=== PATIENT | female | born 2000 | race Caucasian/White ===

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

== ENCOUNTER 2022-09-17 14:00 | Outpatient (RCR) | payer OTHER, SELFPAY ==
--- NOTE | 2022-07-14 10:16 | HP.PTEVAL_ITS ---
Patient's Visit Information MAI BAER is a 21 year old F referred to Physical Therapy by Dr. Fernando Zafar MD with a diagnosis of Scoliosis. Date of Evaluation: 07/14/22 Physical Therapist: Marilyn Vargas DPT - Visit Plan Frequency: 1x/Week Duration: 4 Weeks Plan: 1x a week for 4 weeks for progression of core strength/stabilization at college- pt to buy TENS unit and continue with heat/TENS at home. - Subjective Patient reports that she has scoliosis- she is in college and started having horrible pains- it was about 2 months- before Break- but she is better now. She went to the show dog trainer and she was doing heat and stretches- that helped but it was still hard to get it all in. She went to the MD on Tuesday- they took x-rays and it showed scoliosis. She has known she has had it- saw chiro before due to being a swimmer but wasn't sure it was helping. She is playing tennis at school. She is currently at school- [employer]- she is going back Tuesday she is on spring. Main season is in the fall- she is playing a little bit now but nothing crazy. She does not do a lot of conditioning during tennis season just playing a lot. Sophomore. Pain is located in the bottom right side of her back right above her hip. Describes it as achy pains. Right hand dominate. More painful with sitting- once she gets up and moves around she does better. Sleepin night horrible but put a pillow between her knees- stomach sleeper- has not been waking her for a few months. Worst: 4/10 in the last week- most of the time she is painfree. No N/T in the toes, no loss or change in bowel/bladder, no radiating pain. Does have a heating pad in her dorm room. 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 PMHx: none Meds: none - Objective Posture: FH, RS- can correct but does not maintain-. Observation: scoliotic curve of the thoracic spine with convex curve to the left. HR/TR: able without UE A. SLS: 15 sec does report increased discomfort with right. ROM: WFL in all planes of the lumbar and LE. Strength: Core: fair, Hip: Flexion: 4/5, Extn: 4+/5, Add: 4+/5, Abd: 4/5, IR/ER: 4/5, Knee: 5/5 Ankle: 5/5. Flex:HS: moderate, Gastroc: moderate. Palpation: tender along paraspinals on the right lumbar- increased tightness on the left paraspinals. Right SLS increased discomfort. curve sticks out to the left - Balance/Special Test Scores Oswestry Low Back Score: 5 - Goals Goal 1:: Patient will be I with HEP and progression Goal Time Frame: 4-6 Weeks Goal 2:: Patient will maintain proper posture t/o tx session to demo increased core s/s Goal Time Frame: 4-6 Weeks Goal 3:: Patient will report 80% improvement Goal Time Frame: 4-6 Weeks - Rehabilitation Potential Physical Therapy Diagnosis: Patient presents with hypomobility- she has decreased LE and core strength/stabilization, flex and muscular endurance leading to fair posture and increased pain with ADL's. Rehabilitation Potential: Good - Anticipated Interventions Patient/Client Instruction: Educate patient on: Benefits of Fitness Program Therapeutic Exercise to Include: Strength training, Endurance training, Balance training, Coordination, Agility training, Body mechanics, Postural training, Flexibilty training, Gait and locomotor training, Neuromotor development, Dynamic Lumbar Stabilization, Scapular Strength/Stabilization For the Purpose of:: To improve muscle performance and motor function TENS: Yes Cryotherapy (ice pack, ice massage): Yes Thermo therapy (hot pack): Yes Thank you for the opportunity to evaluate your patient. For Medicare and Medicare HMO plans, please review the plan of care and approve it. It will need to be FAXED BACK to us at [phone] for Medicare purposes. For Medicare only, by signing this I certify the plan of care. Please let me know if there are questions or concerns regarding this plan of care. Physician Signature: Date:
--- NOTE | 2022-11-18 17:12 | HP.PTDCSUM ---
Discharge Summary D/C summary: It has been my pleasure to treat MAI BAER referred by Dr. Fernando Zafar MD, with the diagnosis of Scoliosis for a total of 9 visit(s). Discharge Date: Please see the following information for a summary of their discharge status. Subjective Subjective: States she's feeling real good. Did great last session and feels she is ready for d/c after today. Pain Back: Pain Intensity (Out of 10): 0 Objective Objective/Function: Pt did great with progressions. No pain t/o and appropriately challenged. Session today followed directly with PT for probable d/c. Goals Goal 1:: Patient will be I with HEP and progression Goal 2:: Patient will maintain proper posture t/o tx session to demo increased core s/s Goal 3:: Patient will report 80% improvement Plan Plan: 08/04/22: Cont 1x a week until she returns from college. 1x/week for 4 weeks for progression of core strength/stabilization at college- pt to buy TENS unit and continue with heat/TENS at home. D/C Information d/c sentence: If there are questions or concerns regarding this patient's physical therapy, please feel free to call me at [phone]. Thank you for the referral of this patient. Sincerely, Marilyn Vargas, JUANT Balance/Gait/Functional tests Balance/Special Test Scores Oswestry Low Back Score: 5
== END 2022-09-17 19:00 | disposition home or self-care (01) ==
LOC: PT 14:00
PROVIDERS: PCP Family Medicine; Referring Provider Orthopaedic Surgery Pediatric Orthopaedic Surgery; Visit Provider Orthopaedic Surgery Pediatric Orthopaedic Surgery
DX: M41.125 Adolescent idiopathic scoliosis, thoracolumbar region (principal)
CPT/HCPCS: 97014; 97110; 97162; G0283

== ENCOUNTER → 2024-04-27 | Outpatient (CLI) | payer OTHER, SELFPAY ==
[2024-04-27 16:21] LABS: Follicle Stimulating Hormone 3.2 mIU/mL
[2024-04-29 06:37] LABS: PROLACTIN 12.6 ng/mL (4.8-33.4)
== END | disposition home or self-care (01) ==
LOC: BFHLAB 13:13
PROVIDERS: PCP Family Medicine; Referring Provider Family Medicine; Visit Provider Family Medicine
DX: N91.2 Amenorrhea, unspecified (principal)
CPT/HCPCS: 36415; 83001; 84146; 84443

== ENCOUNTER → 2024-06-13 | Outpatient (CLI) | payer OTHER, SELFPAY ==
[2024-06-17 07:06] LABS: Chlamydia By Nucleic Acid AMP Negative (Negative); Gonococcus By Nucleic Acid AMP Negative (Negative)
[2024-06-20 08:22] LABS: HPV Reflexed? NOT INDICATED
== END | disposition home or self-care (01) ==
PROVIDERS: PCP Family Medicine; Visit Provider Nurse Practitioner Family
DX: Z12.4 Encounter for screening for malignant neoplasm of cervix (principal); Z11.3 Encounter for screening for infections with a predominantly sexual mode of transmission
CPT/HCPCS: 87491; 87591; 88175; G0145

== ENCOUNTER → 2024-07-11 | Outpatient (CLI) | payer OTHER, SELFPAY ==
--- NOTE | 2024-07-11 09:50 | LES_PTH ---
PATIENT: LIBERTAD BAER LOC: [facility] U#:[id number] AGE/SX: ROOM: RE07/11/[address]: Dr. Rosalva Spann MD : 2000 BED: DIS: 07/11/2024 SPEC #: [id number] RECD: 07/11/24 12:11 STATUS: ABBEY DANIEL #: [id number] DIONNE: 07/11/24 09:[address]: Rosalva Spann DEPT: SURGICAL PATHOLOGY RECD BY: Kong Headley ENTERED: 07/11/24 12:19 SP TYPE: Lesion OTHR DR: Dr. Claudia Hoover MD Tissues: Vagina, NOS Procedures: Surgery Specimen Level IV HEADER OPERATION: Lesion removal PRE-OP DIAGNOSIS: Vaginal lesion TISSUE SUBMITTED: Anterior vaginal wall MICROSCOPIC DIAGNOSIS Anterior vaginal wall, lesion, biopsy: * Polypoid fragment of squamous mucosa, mature and well-glycogenated. * No evidence of HPV-cytopathic effect, dysplasia, or malignancy seen. MICROSCOPIC DESCRIPTION Slides are reviewed. GROSS DESCRIPTION Received in formalin labeled with the patient's name Libertad Baer and is not designated is a jesus smooth ovoid soft tissue fragment and two scant tissue fragments that aggregate to 0.3 x 0.3 x 0.2 cm. Totally submitted in 1 cassette.JK. 07/11/2024 TC: [id number] ADDENDUM ADDENDUM ADDENDUM ADDENDUM ADDENDUM 07/17/2024 14:05 ADDENDUM 07/17/2024 14:05 ADDENDUM 07/17/2024 14:05 ADDENDUM 07/17/2024 14:05 ADDENDUM 07/17/2024 14:05 Dr Spann requested repeat review and deeper sections were examined. To rule out additional pathology: * No additional pathologic findings observed (deeper sections examined).
[2024-07-11 13:19] LABS: Estradiol 7.6 pg/mL
[2024-07-17 06:07] LABS: 17-Hydroxyprogesterone < 10 ng/dL (.)
[2024-07-18 01:06] LABS: Testosterone Free 0.8 pg/mL (0.0-4.2)
== END | disposition home or self-care (01) ==
PROVIDERS: PCP Family Medicine; Referring Provider Obstetrics & Gynecology; Visit Provider Obstetrics & Gynecology
DX: N84.2 Polyp of vagina (principal); N93.9 Abnormal uterine and vaginal bleeding, unspecified; N89.8 Other specified noninflammatory disorders of vagina
CPT/HCPCS: 36415; 82627; 82670; 83498; 84402; 88305; 82626

== ENCOUNTER → 2024-09-14 | Outpatient (CLI) | payer OTHER, SELFPAY ==
--- NOTE | 2024-09-14 06:37 | MRI_ITS ---
PROCEDURE: BRAIN W/WO CONTRAST 09/14/2024 REASON FOR EXAM: HYPOTHALAMIC HYPOGONADISM TECHNIQUE: Brain MRI without and with intravenous contrast with additional dedicated imaging of the IACs. Multiplanar and multisequence images were obtained. CONTRAST: COMPARISON: None FINDINGS: No intracerebral or extra-axial hematomas or enhancing masses. No hyperacute or acute infarctions could be depicted. Normal MRI appearance of the cerebral and cerebellar parenchymal signals. Normal MRI appearance of different anatomical parts of the brain stem namely the midbrain, James and medulla oblongata. Normal appearance of the ventricular system. No shift of midline structures. Normal MRI appearance of the petrous temporal bones and cerebellopontine angles with no obvious masses. Normal MRI appearance of orbital structures, both globes, optic nerves, optic chiasm, optic tracts and optic radiations. Scanned paranasal sinuses show no obvious abnormalities. MRI/Brain W/WO Contrast IMPRESSION: Unremarkable study. No acute infarcts, intracerebral or extra-axial hematomas o r enhancing masses. Reading Location: [facility]
== END | disposition home or self-care (01) ==
PROVIDERS: PCP Family Medicine; Referring Provider Obstetrics & Gynecology; Visit Provider Obstetrics & Gynecology
DX: E23.0 Hypopituitarism (principal)
CPT/HCPCS: 70553; A9575